=== PATIENT | female | born 1970 | race Caucasian/White ===

== ENCOUNTER 2022-11-29 09:41 | Emergency (ER) | payer OTHER ==
[2022-11-29] MEDS ORDERED: methylPREDNISolone Sod Succ/PF 125 MG/2 ML VIAL ONE (10:43)
[2022-11-29] MEDS ORDERED: Ipratropium/Albuterol 3 ML NEB ONE (10:43)
[2022-11-29] MEDS ORDERED: Aspirin Chewable 81 MG TAB ONE (10:43)
[2022-11-29 10:49] LABS: #Basophils 0.1 thou/uL (0.0-0.2); #Eosinphils 0.1 thou/uL (0.0-0.7); #Lymphocytes 3.1 thou/uL (1.20-3.40); #Neutrophils 8.7 thou/uL (1.40-6.50); %Basophils 0.8 % (0.0-1.0); %Eosinophils 0.5 % (0.0-10.0); %Lymphocytes 23.9 % (21.0-51.0); %Monocytes 7.4 % (0.0-10.0); %Neutrophils 67.4 % (42.0-75.0); Hemoglobin 13.9 g/dL (12.0-16.0); Mean Corpuscular HGB CONC 32.6 g/dL (32.0-36.0); Mean Corpuscular Hemoglobin 28.5 pg (27.0-31.0); Mean Corpuscular Volume 87.6 fl (78.0-98.0); Mean Platelet Volume 7.7 fL (7.4-10.4); Platelet Count 302 10x3/uL (130-400); RBC Distribution Width 13.6 % (11.5-14.5); Red Blood Cell (RBC) Count 4.88 mill/uL (4.20-5.40); White Blood Cell (WBC) Count 12.9 10x3/uL (4.8-10.8)
[2022-11-29 11:06] LABS: ALT (SGPT) 8 U/L (8-55); AST (SGOT) 12 U/L (5-34); Albumin 4.2 g/dL (3.5-5.0); Alkaline Phosphatase 77 U/L (40-110); Anion Gap 12 mmol/L (10-20); BUN (Urea Nitrogen) 11 mg/dL (9.8-20.1); Bilirubin, Total 0.4 mg/dL (0.2-1.2); Calc. Creatinine Clearance 0 mL/min (70-130); Calcium 9.3 mg/dL (7.8-10.44); Carbon Dioxide 26 mmol/L (22-29); Chloride 106 mmol/L (98-107); Estimated GFR 95; Globulin 2.7 g/dL (2.4-3.5); Glucose 79 mg/dL (70-105); Potassium 3.2 mmol/L (3.5-5.1); Protein, Total 6.9 g/dL (6.0-8.3); Sodium 141 mmol/L (136-145)
[2022-11-29 11:35] LABS: Bilirubin Negative (Negative); Blood, Urine Large (Negative); Clarity Clear (Clear); Glucose, Urine (Dipstick) Negative (Negative); Ketone, Urine Trace mg/dL (Negative); Leukocyte Negative (Negative); Nitrite Negative (Negative); Protein, Urine (Dipstick) Negative (Neg-Trace); Specific Gravity, Urine 1.025 (1.005-1.030); Urobilinogen 0.2 mg/dL (Less than 2); pH, Urine 5.5 (5.0-9.0)
[2022-11-29 11:48] LABS: RBC/HPF Greater than 50 HPF (0-3)
[2022-11-29 11:49] LABS: Bacteria/HPF Rare-Few HPF (None Seen); Squamous Epithelial 0-3 HPF (0-3); WBC/HPF 0-3 HPF (0-3)
== END 2022-11-29 12:15 | disposition home or self-care (01) ==
LOC: MADERS 09:41
DX: J44.1 Chronic obstructive pulmonary disease with (acute) exacerbation (principal); R09.1 Pleurisy; R07.9 Chest pain, unspecified; D72.829 Elevated white blood cell count, unspecified
CPT/HCPCS: 71046; 80053; 81003; 81015; 84484; 85025; 85379; 87804; 93005; 94640; 94760; 96374; J2930; J7620

== ENCOUNTER 2022-12-25 07:50 | Outpatient (CLI) | payer OTHER | END 2022-12-25 07:51 | disposition home or self-care (01) | LOC: MADULT 07:50 | PROVIDERS: ATTEND Emergency Medicine | DX: K80.50 Calculus of bile duct without cholangitis or cholecystitis without obstruction (principal); M25.559 Pain in unspecified hip | CPT/HCPCS: 76705 ==

== ENCOUNTER 2024-08-08 12:28 | Emergency (ER) | payer OTHER ==
[2024-08-08] MEDS ORDERED: Benzonatate 100 MG CAP ONE (13:10)
[2024-08-08] MEDS ORDERED: Ipratropium/Albuterol 3 ML NEB ONE (13:10)
[2024-08-08] MEDS ORDERED: Sodium Chloride 0.9% 1,000 ML ONE (13:11)
[2024-08-08] MEDS ORDERED: methylPREDNISolone Sod Succ/PF 125 MG/2 ML VIAL ONE (13:11)
[2024-08-08 13:38] LABS: Hematocrit 40.2 % (36.0-47.0); Hemoglobin 12.6 g/dL (12.0-16.0); Mean Corpuscular HGB CONC 31.4 g/dL (32.0-36.0); Mean Corpuscular Hemoglobin 28.5 pg (27.0-31.0); Mean Corpuscular Volume 90.7 fl (78.0-98.0); Mean Platelet Volume 7.2 fL (7.4-10.4); Platelet Count 176 10x3/uL (130-400); RBC Distribution Width 13.3 % (11.5-14.5); Red Blood Cell (RBC) Count 4.44 mill/uL (4.20-5.40); White Blood Cell (WBC) Count 4.4 10x3/uL (4.8-10.8)
[2024-08-08 13:49] LABS: ALT (SGPT) 9 U/L (8-55); AST (SGOT) 14 U/L (5-34); Albumin 4.1 g/dL (3.5-5.0); Alkaline Phosphatase 49 U/L (40-110); Anion Gap 18 mmol/L (10-20); BUN (Urea Nitrogen) 17 mg/dL (9.8-20.1); Band 3 % (5-11); Bilirubin, Total 0.3 mg/dL (0.2-1.2); Calc. Creatinine Clearance 0 mL/min (70-130); Calcium 9.1 mg/dL (7.8-10.44); Carbon Dioxide 22 mmol/L (22-29); Chloride 101 mmol/L (98-107); Estimated GFR 61; Glucose 95 mg/dL (70-105); Lymphocytes 11 % (21-51); MDiff Complete? YES; Magnesium 1.9 mg/dL (1.6-2.6); Manual Diff?? YES; Monocytes 5 % (0-10); Neutrophil 68 % (42-75); Potassium 3.5 mmol/L (3.5-5.1); Protein, Total 7.1 g/dL (6.0-8.3); Reactive Lymphocytes 13 % (0-10); Sodium 137 mmol/L (136-145)
[2024-08-08 13:50] LABS: Platelet Adequacy Comment Appears Adequate; RBC Morph Comment Within Normal Limits; Troponin I Less than 0.010 ng/mL (< 0.028)
== END 2024-08-08 14:26 | disposition home or self-care (01) ==
LOC: MADERS 12:28
DX: J44.1 Chronic obstructive pulmonary disease with (acute) exacerbation (principal); J06.9 Acute upper respiratory infection, unspecified; B97.89 Other viral agents as the cause of diseases classified elsewhere; F17.210 Nicotine dependence, cigarettes, uncomplicated
CPT/HCPCS: 71046; 80053; 83735; 83880; 84484; 85025; 85379; 93005; 96374; J2919; J7030; J7620